=== PATIENT | female | born 1990 | race Caucasian/White ===

== ENCOUNTER 2020-07-05 17:43 | Emergency (ER) | payer SELFPAY ==
[~2020-07-05] VITALS: Ht 165.1 cm; Wt 113.0 kg
[2020-07-05 17:52] VITALS: BP 140/84
[2020-07-05] MEDS ORDERED: ACETAMINOPHEN 325MG TABLET PO STA (19:38)
[2020-07-05] MEDS ORDERED: ONDANSETRON 4MG ODT PO STA (19:38)
== END 2020-07-05 21:24 | disposition left against medical advice (07) ==
LOC: ER 17:43
DX: R10.13 Epigastric pain (principal); M25.562 Pain in left knee
CPT/HCPCS: 93005; 99283